=== PATIENT | female | born 1970 | race Caucasian/White ===

== ENCOUNTER 2023-08-22 06:15 | Day surgery (SDC) | payer BC ==
[~2023-08-22] VITALS: Ht 165.1 cm; Wt 65.8 kg
[~2023-08-22 06:15] MED LIST: SOMA; VICODIN; XANAX
[2023-08-22] MEDS ORDERED: MIDAZOLAM HCL 2 MG/2 ML VIAL (VERSED) ONE (07:30)
[2023-08-22] MEDS ORDERED: KETAMINE HCL IN 0.9 % NACL 50 MG/5 ML SYRINGE ONE (07:30)
[2023-08-22] MEDS ORDERED: LIDOCAINE 1% 10 MG/ML, 20 ML MDV ONE (08:45)
[2023-08-22 10:54] VITALS: O2SAT 98
[2023-08-22 17:07] VITALS: BP_SYST 115; PULSE 68; RESP 18; TEMP 98.1
== END 2023-08-22 10:17 | disposition home or self-care (01) ==
LOC: SMU 06:15 → SDS 06:15
PROVIDERS: ATTEND Podiatrist Primary Podiatric Medicine
DX: R22.42 Localized swelling, mass and lump, left lower limb (principal); M79.89 Other specified soft tissue disorders; M79.7 Fibromyalgia; M06.9 Rheumatoid arthritis, unspecified; Z90.710 Acquired absence of both cervix and uterus; Z90.49 Acquired absence of other specified parts of digestive tract; Z98.890 Other specified postprocedural states; Z79.899 Other long term (current) drug therapy
CPT/HCPCS: 87081; 28039; 88304; 88341; 88342; 88361; J3490; J3465; J2704; J7120; J2001